=== PATIENT | male | born 1965 | race Asian ===

== ENCOUNTER 2021-06-25 18:45 | Emergency (ER) | payer OTHER ==
[~2021-06-25] VITALS: Ht 160 cm; Wt 72.6 kg
--- NOTE | 2021-06-25 19:01 | NUR ---
Patient to ER bed 03 to gown for evaluation. Side rails up.
[2021-06-25 19:02] VITALS: BP_SYST 148
--- NOTE | 2021-06-25 19:03 | NUR ---
Pt brought by son, A&Ox4, pt states he was sent by PCP to get X-ray since he is having nose surgery next week at [facility], pt denies having a physical X ray order, radiology denies having X-ray order via fax, Dr Barlow notified.
--- NOTE | 2021-06-25 19:05 | NUR ---
Dr Barlow evaluating patient at bedside
--- NOTE | 2021-06-25 19:14 | NUR ---
Report received from ZIGGY Howell for continuation of care
--- NOTE | 2021-06-25 19:15 | NUR ---
Pt awake a/o x4. speech clear and coherent. pt denies pain / sob. family at bedside. pt states he just came back from xr and is awaiting results. is scheduled for nasal surgery on 06/27/21, sent him to this hospital to get cxr done to be cleared for surgery according to pt. will continue to monitor.
--- NOTE | 2021-06-25 19:35 | NUR ---
Dr Barlow at bedside speaking with pt and pts family
--- NOTE | 2021-06-25 19:39 | NUR ---
Pt discharged. Pt awake a/o x4. aci reviewed with pt and pts family, verbalized understanding. to follow up with pmd within the next 2-3 days or return to ed if condition worsens. vs stable. ambulatory with steady gait unassisted. nad.
[2021-06-25 19:40] VITALS: BP_SYST 148
== END 2021-06-25 19:40 | disposition home or self-care (01) ==
LOC: SED 18:45
DX: Z00.00 Encounter for general adult medical examination without abnormal findings (principal)
CPT/HCPCS: 71045; 99283